=== PATIENT | female | born 1975 | race Caucasian/White ===

== ENCOUNTER → 2019-11-14 | Outpatient (CLI) | payer BC | END | disposition home or self-care (01) | LOC: PREOP 05:42 | PROVIDERS: ATTEND Surgery | DX: Z01.818 Encounter for other preprocedural examination (principal) ==

== ENCOUNTER → 2020-05-10 | Outpatient (CLI) | payer BC ==
[~2020-05-10] MED LIST: LABE100T6 PO; LISI10TA2 PO; METF-397 PO
--- NOTE | 2020-05-11 09:06 | Diagnostic Imaging Report ---
INDICATION: Routine screening. No prior mammograms are available for comparison. This is a baseline study. 2-D and 3-D bilateral screening mammography was performed with CAD. Both breasts are heterogeneously dense, limiting the sensitivity of mammography. No mass or malignant appearing microcalcifications are identified. The axillae are unremarkable. IMPRESSION: BI-RADS Category 1 No mammographic features suspicious for malignancy are identified. ACR BI-RADS Category 1: Negative. Result letter will be mailed to the patient. Note: At least 10% of breast cancer is not imaged by mammography. Dictated by: Dictated on workstation # [id number]
== END ==
LOC: RAD 15:02
PROVIDERS: ATTEND Obstetrics & Gynecology
DX: Z12.31 Encounter for screening mammogram for malignant neoplasm of breast (principal)
CPT/HCPCS: 77063; 77067

== ENCOUNTER → 2021-07-05 | Outpatient (CLI) | payer BC ==
[~2021-07-05] MED LIST changes: -LISI10TA2 PO; +LISI10TA25 PO
[2021-07-05 15:43] LABS: CHOLESTEROL 137 MG/DL (< 200); HDL CHOLESTEROL 53 MG/DL (40-60); TRIGLYCERIDES 229 MG/DL (<150); VLDL CHOLESTEROL 46 MG/DL (5-40)
== END ==
LOC: LAB FS 07:35
PROVIDERS: ATTEND Obstetrics & Gynecology
DX: E78.00 Pure hypercholesterolemia, unspecified (principal)
CPT/HCPCS: 36415; 80061

== ENCOUNTER 2021-08-08 12:03 | Emergency (ER) | payer BC ==
[~2021-08-08] VITALS: Ht 162 cm; Wt 135.0 kg
[2021-08-08 12:23] LABS: BILIRUBIN,URINE NEGATIVE (NEGATIVE); CLARITY,URINE TURBID; COLOR,URINE RED; GLUCOSE, URINE (UA) NEGATIVE (NEGATIVE); KETONES,URINE 1+ (NEGATIVE); LEUKOCYTE ESTERASE ,URINE 2+ (NEGATIVE); PROTEIN,URINE 3+ (NEGATIVE)
[2021-08-08 12:41] LABS: WHITE BLOOD COUNT 9.6 10^3/uL (4.3-11.0)
[2021-08-08 12:42] LABS: BASOPHILS % (AUTO) 0 % (0-10); EOSINOPHILS # (AUTO) 0.1 10^3/uL (0.0-0.3); EOSINOPHILS % (AUTO) 2 % (0-10); HEMATOCRIT 33 % (35-52); HEMOGLOBIN 11.1 g/dL (11.5-16.0); LYMPHOCYTES % (AUTO) 21 % (12-44); MEAN CORPUSCULAR HEMOGLOBIN 29 pg (25-34); MEAN CORPUSCULAR HGB CONC 33 g/dL (32-36); MEAN CORPUSCULAR VOLUME 87 fL (80-99); MEAN PLATELET VOLUME 9.7 fL (9.0-12.2); MONOCYTES # (AUTO) 0.9 X 10^3 (0.0-1.0); MONOCYTES % (AUTO) 9 % (0-12); NEUTROPHILS # (AUTO) 6.5 X 10^3 (1.8-7.8); NEUTROPHILS % (AUTO) 68 % (42-75); PLATELET COUNT 353 10^3/uL (130-400)
[2021-08-08 12:44] LABS: NITRITE,URINE NEGATIVE (NEGATIVE)
[2021-08-08 12:45] LABS: BACTERIA,URINE NEGATIVE /HPF; RBC,URINE TNTC /HPF; SQUAMOUS EPITHELIAL CELL,UR RARE /HPF
[2021-08-08 13:09] LABS: POTASSIUM 4.1 MMOL/L (3.6-5.0)
[2021-08-08 13:10] LABS: BILIRUBIN,TOTAL 0.2 MG/DL (0.1-1.0); CALCIUM 8.7 MG/DL (8.5-10.1); CREATININE SERUM 0.64 MG/DL (0.60-1.30); TOTAL PROTEIN 6.5 GM/DL (6.4-8.2)
[2021-08-08 13:11] LABS: ALBUMIN 3.7 GM/DL (3.2-4.5)
--- NOTE | 2021-08-08 13:25 | Diagnostic Imaging Report ---
INDICATION: Abnormal uterine bleeding TECHNIQUE: Multiple real time jin scale sonographic images were obtained of the pelvis transabdominally and endovaginally. CORRELATION STUDY: None FINDINGS: UTERUS: 9.6 x 5.4 x 4.9 cm. ENDOMETRIUM: 12 mm. There is a heterogeneous predominantly solid appearing mass in the mid left aspect of the uterus which invades into the endometrium. This measures approximately 5.7 x 5.1 x 4.2 cm. Presence of vascular blood flow. RIGHT OVARY: Not visualized, perhaps obscured by overlying bowel gas and/or positional. LEFT OVARY: Left ovary not well visualized, however there does appear to be a predominantly simple appearing cyst in the left adnexa which measures 4.3 x 3.2 x 2.9 cm. No significant free pelvic fluid. IMPRESSION: 1. Complex vascularized uterine mass measuring nearly 6 cm in size. This appears to invade into the endometrial canal. May very well reflect a fibroid uterus. Other masses including neoplasm are not excluded. 2. Endometrial thickness upper limits of normal. 3. Ovaries are not well visualized. Probable left ovarian or paraovarian cyst. 4. Given the overall findings, if further assessment desired, MRI of the pelvis would be recommended and likely of diagnostic utility. Dictated by: Dictated on workstation # [id number]
--- NOTE | 2021-08-08 13:25 | ED GU-Female ---
General Chief Complaint: - Reproductive Stated Complaint: VAGINAL BLEEDING Nursing Triage Note: PT REPORTS SHE HAS HAD A HEAVY PERIOD SINCE THURSDAY WITH LARGE CLOTS TODAY. Source: patient Exam Limitations: no limitations History of Present Illness Date Seen by Provider: Aug 08, 2021 Time Seen by Provider: 12:20 Initial Comments Patient is a 44-year-old female with a history of PCOS who presents with heavy vaginal bleeding with large clots starting 3 days ago. Patient states she is going through a tampon every every hour with 2-3 inch size clots. She reports g eneralized fatigue and weakness. She denies dizziness lightheadedness chest pain palpitation shortness of breath. Reports some mild pelvic cramping. No chest pain palpitations shortness of breath. No other acute symptoms or complaints. Last menstrual period 1 month ago. Patient reports regular monthly cycles with average 5 to 7-day menstrual bleed y Timing/Duration: week, intermittent Location: other Radiation: other Activities at Onset: other Modifying Factors: Improves With Other Associated Symptoms: other Allergies and Home Medications Allergies Coded Allergies: No Known Drug Allergies (Unverified , 11/21/19) Patient Home Medication List Home Medication List Reviewed: Yes Labetalol HCl (Labetalol HCl) Unknown Strength Tablet, Unknown Dose PO, (Reported) Entered as Reported by: ALBERTO GOMEZ on 11/21/19 1050 Lisinopril (Lisinopril) Unknown Strength Tablet, Unknown Dose PO DAILY, (Reported) Entered as Reported by: ALBERTO GOMEZ on 11/21/19 1050 Metformin HCl (Metformin HCl) 500 Mg Tablet, 500 MG PO BID, (Reported) Entered as Reported by: ALBERTO GOMEZ on 11/21/19 1050 Review of Systems Review of Systems Constitutional: see HPI EENTM: see HPI Respiratory: see HPI Cardiovascular: see HPI Gastrointestinal: see HPI Genitourinary: see HPI Musculoskeletal: see HPI Skin: see HPI Psychiatric/Neurological: See HPI Endocrine: See HPI Hematologic/Lymphatic: See HPI All Other Systemes Reviewed Negative Unless Noted: Yes Past Knexhdg-Mgldtr-Gynavf Hx Patient Social History Tobacco Use?: No Use of E-Cig and/or Vaping dev: No Substance use?: No Alcohol Use?: Yes Pt feels they are or have been: No Immunizations Up To Date PED Vaccines UTD: No Seasonal Allergies Seasonal Allergies: No Past Medical History Surgeries: No Respiratory: No Cardiac: Yes Hypertension Neurological: No Last Menstrual Period: Aug 08, 2021 Genitourinary: No Gastrointestinal: No Musculoskeletal: No Endocrine: No HEENT: No Cancer: No Psychosocial: No Integumentary: No Blood Disorders: No Physical Exam Vital Signs Vital Signs - First Documented 08/08/21 12:07 Temp 36.0 Pulse 116 Resp 18 B/P (MAP) 186/112 (136) Pulse Ox 99 O2 Delivery Room Air Capillary Refill : Less Than 3 Seconds Height, Weight, BMI Height: '" Weight: lbs. oz. kg; 51.00 BMI Method: General Appearance: WD/WN, no apparent distress HEENT: PERRL/EOMI Neck: full range of motion, supple Cardiovascular: normal peripheral pulses Respiratory: lungs clear, normal breath sounds Gastrointestinal: non tender, soft Extremities: non-tender Neurologic/Psychiatric: alert, oriented x 3 Skin: normal color Focused Exam Sepsis Stage: Ruled Out Progress/Results/Core Measures Suspected Sepsis SIRS Temperature: Pulse: 116 Respiratory Rate: 18 Laboratory Tests 08/08/21 12:20: White Blood Count 9.6 Blood Pressure 186 /112 Mean: 136 Laboratory Tests 08/08/21 12:20: Creatinine 0.64, Platelet Count 353, Total Bilirubin 0.2 Results/Orders Lab Results Laboratory Tests Test 08/08/21 12:09 08/08/21 12:20 Range/Units Urine Color RED H Urine Clarity TURBID Urine pH 5.0 5-9 Urine Specific [place] 1.025 H 1.016-1.022 Urine Protein 3+ H NEGATIVE Urine Glucose (UA) NEGATIVE NEGATIVE Urine Ketones 1+ H NEGATIVE Urine Nitrite NEGATIVE NEGATIVE Urine Bilirubin NEGATIVE NEGATIVE Urine Urobilinogen 2.0 < = 1.0 MG/DL Urine Leukocyte Esterase 2+ H NEGATIVE Urine RBC (Auto) 3+ H NEGATIVE Urine RBC TNTC H /HPF Urine WBC 2-5 /HPF Urine Squamous Epithelial Cells RARE /HPF Urine Crystals NONE /LPF Urine Bacteria NEGATIVE /HPF Urine Casts NONE /LPF Urine Mucus LARGE H /LPF Urine Culture Indicated YES White Blood Count 9.6 4.3-11.0 10^3/uL Red Blood Count 3.86 3.80-5.11 10^6/uL Hemoglobin 11.1 L 11.5-16.0 g/dL Hematocrit 33 L 35-52 % Mean Corpuscular Volume 87 80-99 fL Mean Corpuscular Hemoglobin 29 25-34 pg Mean Corpuscular Hemoglobin Concent 33 32-36 g/dL Red Cell Distribution Width 14.6 H 10.0-14.5 % Platelet Count 353 130-400 10^3/uL Mean Platelet Volume 9.7 9.0-12.2 fL Immature Granulocyte % (Auto) 0 % Neutrophils (%) (Auto) 68 42-75 % Lymphocytes (%) (Auto) 21 12-44 % Monocytes (%) (Auto) 9 0-12 % Eosinophils (%) (Auto) 2 0-10 % Basophils (%) (Auto) 0 0-10 % Neutrophils # (Auto) 6.5 1.8-7.8 X 10^3 Lymphocytes # (Auto) 2.0 1.0-4.0 X 10^3 Monocytes # (Auto) 0.9 0.0-1.0 X 10^3 Eosinophils # (Auto) 0.1 0.0-0.3 10^3/uL Basophils # (Auto) 0.0 0.0-0.1 10^3/uL Immature Granulocyte # (Auto) 0.0 0.0-0.1 10^3/uL Sodium Level 137 135-145 MMOL/L Potassium Level 4.1 3.6-5.0 MMOL/L Chloride Level 105 98-107 MMOL/L Carbon Dioxide Level 21 21-32 MMOL/L Anion Gap 11 5-14 MMOL/L Blood Urea Nitrogen 12 7-18 MG/DL Creatinine 0.64 0.60-1.30 MG/DL Estimat Glomerular Filtration Rate 101 BUN/Creatinine Ratio 19 Glucose Level 111 H 70-105 MG/DL Calcium Level 8.7 8.5-10.1 MG/DL Corrected Calcium 8.9 8.5-10.1 MG/DL Total Bilirubin 0.2 0.1-1.0 MG/DL Aspartate Amino Transf (AST/SGOT) 19 5-34 U/L Alanine Aminotransferase (ALT/SGPT) 12 0-55 U/L Alkaline Phosphatase 85 40-136 U/L Total Protein 6.5 6.4-8.2 GM/DL Albumin 3.7 3.2-4.5 GM/DL My Orders Orders - ODALYS POLLOCK DO Cbc With Automated Diff (08/08/21 12:16) Comprehensive Metabolic Panel (08/08/21 12:16) Urinalysis (08/08/21 12:16) Urine Bedside (08/08/21 12:16) Us Pelvic (Non Ob) [id number] (08/08/21 12:36) Urine Culture (08/08/21 12:09) Vital Signs/I&O 08/08/21 12:07 Temp 36.0 Pulse 116 Resp 18 B/P (MAP) 186/112 (136) Pulse Ox 99 O2 Delivery Room Air Capillary Refill : Less Than 3 Seconds Blood Pressure Mean: 136 Departure Communication (Admissions) Pelvic ultrasound: Large complex vascular endometrial mass Patient with uterine bleeding with abnormal ultrasound and stable vital signs/H&H Case reviewed with on-call primary school teacher in detail. Recommendations are for outpatient endometrial biopsy with possible D&C next week. Patient instructed to contact primary school teacher office. Return precautions reviewed. Patient verbalizes understanding and agreement discharge instructions prior to discharge. Impression Primary Impression: Dysfunctional uterine bleeding Disposition: HOME, SELF-CARE Condition: Against Medical Advice Departure-Patient Inst. Decision time for Depature: 13:43 Referrals: AKILA FU DO Patient Instructions: Bleeding Between Periods Add. Discharge Instructions: You were evaluated in the emergency department for abnormal uterine bleeding. An ultrasound was performed which shows an endometrial mass. Please contact Dr. Ortiz on-call for [employer] and schedule an office follow-up next week for possible endometrial biopsy versus D&C. In the meantime if you develop new or worsening symptoms, please return to the emergency department. All discharge instructions reviewed with patient and/or family. Voiced understanding. ODALYS POLLOCK DO Aug 08, 2021 13:24
[2021-08-08] MEDS ORDERED: oxyCODONE/APAP 5/325MG (PERCOCET 5) TABLET PO ONE (14:00)
[2021-08-08 14:13] VITALS: BP 147/86
[2021-08-08] MEDS ORDERED: ACHD5005 PO (14:26)
[2021-08-08] MEDS ORDERED: HYDROcodone/APAP 5 MG/325 MG (LORTAB) TAB PO PRN (14:30)
== END 2021-08-08 14:28 | disposition home or self-care (01) ==
LOC: EDUNIT# 12:03 → ER FS 12:04
DX: N93.8 Other specified abnormal uterine and vaginal bleeding (principal); I10 Essential (primary) hypertension; Z79.899 Other long term (current) drug therapy
CPT/HCPCS: 36415; 76856; 80053; 81000; 84703; 85025; 87077; 87088

== ENCOUNTER 2021-08-14 05:50 | Outpatient (CLI) | payer BC ==
[~2021-08-14] VITALS: Ht 162.6 cm; Wt 131.8 kg
[~2021-08-14 05:50] MED LIST changes: +ACHD5005 PO
[2021-08-14] MEDS ORDERED: ATOR20TA66 PO (10:36)
[2021-08-14] MEDS ORDERED: MEDR10TA9 PO (10:36)
== END 2021-08-14 11:14 | disposition home or self-care (01) ==
LOC: PREOP 05:50
PROVIDERS: ATTEND Obstetrics & Gynecology
DX: Z01.818 Encounter for other preprocedural examination (principal)

== ENCOUNTER 2021-08-19 08:43 | Day surgery (SDC) | payer BC ==
[2021-08-19] VITALS (12 sets, daily range): BP systolic 121–168; BP diastolic 65–100
[~2021-08-19] VITALS: Ht 162.6 cm; Wt 131.8 kg
[~2021-08-19 08:43] MED LIST changes: +ATOR20TA66 PO; +MEDR10TA9 PO
[2021-08-19] MEDS ORDERED: LACTATED RINGERS 1,000 ML IV PRN (09:00)
[2021-08-19 09:28] LABS: BASOPHILS % (AUTO) 0 % (0-10); EOSINOPHILS # (AUTO) 0.1 10^3/uL (0.0-0.3); EOSINOPHILS % (AUTO) 2 % (0-10); HEMATOCRIT 29 % (35-52); HEMOGLOBIN 9.7 g/dL (11.5-16.0); LYMPHOCYTES # (AUTO) 1.7 10^3/uL (1.0-4.0); LYMPHOCYTES % (AUTO) 25 % (12-44); MEAN CORPUSCULAR HEMOGLOBIN 28 pg (25-34); MEAN CORPUSCULAR HGB CONC 33 g/dL (32-36); MEAN CORPUSCULAR VOLUME 86 fL (80-99); MEAN PLATELET VOLUME 9.5 fL (9.0-12.2); MONOCYTES # (AUTO) 0.6 10^3/uL (0.0-1.0); MONOCYTES % (AUTO) 9 % (0-12); NEUTROPHILS # (AUTO) 4.4 10^3/uL (1.8-7.8); NEUTROPHILS % (AUTO) 64 % (42-75); PLATELET COUNT 408 10^3/uL (130-400); WHITE BLOOD COUNT 6.9 10^3/uL (4.3-11.0)
[2021-08-19] MEDS ORDERED: LIDOCAINE PF 2% 5 ML (XYLOCAINE) VIAL ONE (10:49)
[2021-08-19] MEDS ORDERED: fentaNYL INJ 100 MCG/2 ML AMP ONE ×2 (10:49→12:00)
[2021-08-19] MEDS ORDERED: proPOfol 200 MG/20 ML (DIPRIVAN) VIAL IV ONE (10:49)
[2021-08-19] MEDS ORDERED: ONDANSETRON 4 MG/2 ML (SDV) Z0FRAN ONE (10:49)
[2021-08-19] MEDS ORDERED: MIDAZOLAM 2 MG/2 ML (VERSED) VIAL ONE (10:49)
[2021-08-19] MEDS ORDERED: SEVOFLURANE (ULTANE) 15 ML INHAL SOLN ONE ×3 (10:49→12:01)
[2021-08-19] MEDS ORDERED: BUPIVACAINE 0.25% 30 ML (SENSORCAINE) VIAL ONE (10:58)
--- NOTE | 2021-08-19 12:10 | Progress Note-Pre Operative ---
Pre-Operative Progress Note H&P Reviewed The H&P was reviewed, patient examined and no changes noted. Date Seen by Provider: Aug 19, 2021 Time Seen by Provider: 12:00 Date H&P Reviewed: Aug 19, 2021 Time H&P Reviewed: 12:00 Pre-Operative Diagnosis: AUB, Intrauterine mass AKILA FU DO Aug 19, 2021 12:10
--- NOTE | 2021-08-19 12:13 | Discharge Inst-Women's Service ---
Discharge Inst-Women's Serv Depart Medication/Instructions New, Converted or Re-Newed RX: Other (take at home meds) Problems Reviewed?: Yes Consults/Follow Up Additional Follow Up: Yes Activity Activity: Activity as Tolerated Driving Instructions: No Driving for 1 Week NO SMOKING: NO SMOKING Nothing Inside Vagina: No Douching, No [place], No Tampons Diet Discharge Diet: No Restrictions Symptoms to Report to : Bleeding Excessive, Pain Increased, Fever Over 101 Degrees F, Vaginal Bleeding Increase, Questions/Concerns For Any Problems or Questions: Contact Your Physician AKILA FU DO Aug 19, 2021 12:13
[2021-08-19] MEDS ORDERED: ONDANSETRON 4 MG/2 ML (SDV) Z0FRAN IVP PRN ×2 (12:15→12:30)
[2021-08-19] MEDS ORDERED: KETOROLAC 30 MG/ML VIAL IVP ONE (12:15)
[2021-08-19] MEDS ORDERED: D5 LR IV SOLUTION 1,000 ML IV SCH (12:15)
[2021-08-19] MEDS ORDERED: KETOROLAC 30 MG/ML VIAL ONE (12:26)
[2021-08-19] MEDS ORDERED: morphine INJ 10 MG/ML 1ML (SYR OR VIAL) IVP ONE (12:30)
--- NOTE | 2021-08-19 19:28 | OPERATIVE REPORT ---
DATE OF SERVICE: PREOPERATIVE DIAGNOSES: 1. A 45-year-old female with abnormal uterine bleeding. 2. Intrauterine mass. POSTOPERATIVE DIAGNOSES: 1. A 45-year-old female with abnormal uterine bleeding. 2. Intrauterine mass. PROCEDURE: D and C with hysteroscopic partial resection of endometrial intrauterine mass. SURGEON: Akila Fu DO ANESTHESIA: LMA. ESTIMATED BLOOD LOSS: Minimal. URINE OUTPUT: 50 mL drained at the end of procedure. FLUIDS: 1200 mL lactated Ringer's solution. FINDINGS: A large lower uterine segment distorting mass that appears to be smooth and the surface consistent with a submucosal fibroid. Grossly normal appearing intrauterine cavity, otherwise normal normal-appearing tubal ostia. SPECIMEN SENT: Endometrial curettings. INDICATIONS FOR PROCEDURE: This 45-year-old female as a patient's followup from the [facility] for heavy bleeding episode. She was started on Provera initially and sent home. Due to her stability, she continued her Provera and her bleeding had stopped. She reports that her preoperative consultation that she has been bleeding for approximately the last 4 weeks, really picked up in the past week. I discussed with the patient need for endometrial sampling due to her age and her body habitus as well as suspicion of this mass, possibly being something neoplastic or malignant. Risk of D and C was discussed with the patient in detail including risk of bleeding, infection, damage to surrounding structures including the uterus itself. After all of her questions were answered, consent was obtained, the patient was taken to the operating room. OPERATIVE REPORT IN DETAIL: Once in the operating room and anesthesia was found to be adequate, she was placed in the dorsal lithotomy position, prepped and draped in normal sterile fashion. A timeout was performed. Weighted speculum was inserted into the patient's vagina. Right angle retractor was used to visualize the cervix, which was grasped at 12 o'clock position using a long Allis clamp. I then performed paracervical block at 3 and 9 o'clock positions on the cervix. Care was taken to aspirate for injecting 0.25% Marcaine with 5 mL are injected into each site. I then gently sound uterine cavity and was found to be approximately 8 to 9 cm. I then advanced a hysteroscope with normal saline with visual medium into the uterine cavity. Initially, the uterine cavity appears to be grossly normal until I reached the level of the lower uterine segment and entered into the cervix, at which point, there is a large space-occupying intrauterine mass coming off of the anterior left endometrial endocervical attachment point, at which point I attempt to begin to resect this; however, due to the fluid management system, unable to completely resect, I am able to collect a tissue sample from the intrauterine mass, which I suspect of the fibroid by its gross appearance. I then performed a gentle curettage of the remainder of the endometrial cavity. All of these are collected together and sent as endometrial curettings. I removed all the instruments from the patient's vagina at the end of the procedure and the bladder was emptied using straight catheterization. Lap and sponge counts were correct at the end of the procedure. Instrument counts correct as well. The patient tolerated the procedure well and sent to recovery in stable condition. Job ID: [id number] DocumentID: [id number] Dictated Date: 08/19/2021 12:50:40 Fast Food Supervisor Date: 08/19/2021 19:27:43 Dictated By: AKILA FU DO
== END 2021-08-19 14:15 | disposition home or self-care (01) ==
LOC: SDC 08:43
PROVIDERS: ATTEND Obstetrics & Gynecology
DX: N84.0 Polyp of corpus uteri (principal); I10 Essential (primary) hypertension; E66.01 Morbid (severe) obesity due to excess calories; Z68.42 Body mass index [BMI] 45.0-49.9, adult; Z79.891 Long term (current) use of opiate analgesic; Z90.49 Acquired absence of other specified parts of digestive tract; Z79.899 Other long term (current) drug therapy; Z90.89 Acquired absence of other organs
CPT/HCPCS: 36415; 84703; 85025; 86850; 86900; 86901; 87081

== ENCOUNTER 2021-09-02 06:55 | Outpatient (CLI) | payer BC ==
[~2021-09-02] VITALS: Ht 162.5 cm; Wt 131.8 kg
[2021-09-03] MEDS ORDERED: NORG1TAB75 PO (10:22)
== END 2021-09-04 10:48 | disposition home or self-care (01) ==
LOC: PREOP 06:55
PROVIDERS: ATTEND Obstetrics & Gynecology
DX: Z01.818 Encounter for other preprocedural examination (principal)

== ENCOUNTER 2021-09-09 07:47 | Day surgery (SDC) | payer BC ==
[~2021-09-09] VITALS: Ht 162.5 cm; Wt 131.8 kg
[2021-09-09] VITALS (11 sets, daily range): BP systolic 141–172; BP diastolic 79–886
[~2021-09-09 07:47] MED LIST changes: +NORG1TAB75 PO
[2021-09-09 08:26] LABS: BASOPHILS % (AUTO) 0 % (0-10); EOSINOPHILS # (AUTO) 0.1 10^3/uL (0.0-0.3); EOSINOPHILS % (AUTO) 2 % (0-10); HEMATOCRIT 31 % (35-52); HEMOGLOBIN 9.6 g/dL (11.5-16.0); LYMPHOCYTES # (AUTO) 1.3 10^3/uL (1.0-4.0); LYMPHOCYTES % (AUTO) 21 % (12-44); MEAN CORPUSCULAR HEMOGLOBIN 27 pg (25-34); MEAN CORPUSCULAR HGB CONC 32 g/dL (32-36); MEAN CORPUSCULAR VOLUME 85 fL (80-99); MEAN PLATELET VOLUME 9.5 fL (9.0-12.2); MONOCYTES # (AUTO) 0.5 10^3/uL (0.0-1.0); MONOCYTES % (AUTO) 8 % (0-12); NEUTROPHILS # (AUTO) 4.3 10^3/uL (1.8-7.8); NEUTROPHILS % (AUTO) 68 % (42-75); PLATELET COUNT 361 10^3/uL (130-400); WHITE BLOOD COUNT 6.3 10^3/uL (4.3-11.0)
[2021-09-09] MEDS ORDERED: ceFAZolin 2 GM IV Premixed 50 ML IV ONE (08:30)
[2021-09-09 08:35] LABS: ALBUMIN 3.8 GM/DL (3.2-4.5); POTASSIUM 3.9 MMOL/L (3.6-5.0)
[2021-09-09 08:37] LABS: CALCIUM 8.3 MG/DL (8.5-10.1)
[2021-09-09 08:38] LABS: TOTAL PROTEIN 6.7 GM/DL (6.4-8.2)
[2021-09-09 08:39] LABS: BILIRUBIN,TOTAL 0.5 MG/DL (0.1-1.0)
[2021-09-09 08:41] LABS: CREATININE SERUM 0.72 MG/DL (0.60-1.30)
[2021-09-09] MEDS ORDERED: SEVOFLURANE (ULTANE) 15 ML INHAL SOLN ONE ×3 (08:57→10:58)
[2021-09-09] MEDS ORDERED: LIDOCAINE PF 2% 5 ML (XYLOCAINE) VIAL ONE (08:57)
[2021-09-09] MEDS ORDERED: ONDANSETRON 4 MG/2 ML (SDV) Z0FRAN ONE (08:57)
[2021-09-09] MEDS ORDERED: proPOfol 200 MG/20 ML (DIPRIVAN) VIAL IV ONE ×2 (08:57→11:10)
[2021-09-09] MEDS ORDERED: fentaNYL INJ 100 MCG/2 ML AMP ONE ×2 (08:58→09:57)
[2021-09-09] MEDS ORDERED: MIDAZOLAM 2 MG/2 ML (VERSED) VIAL ONE (08:58)
[2021-09-09] MEDS ORDERED: ROCURONIUM 50 MG/5 ML (ZEMURON) VIAL IV ONE ×2 (08:58→10:23)
[2021-09-09] MEDS: LACTATED RINGERS 1,000 ML IV PRN ×3 (09:00→11:56)
[2021-09-09] MEDS ORDERED: BUPIVACAINE 0.25% 30 ML (SENSORCAINE) VIAL ONE (09:07)
--- NOTE | 2021-09-09 09:11 | Progress Note-Pre Operative ---
Pre-Operative Progress Note H&P Reviewed The H&P was reviewed, patient examined and no changes noted. Date Seen by Provider: Sep 09, 2021 Time Seen by Provider: 09:00 Date H&P Reviewed: Sep 09, 2021 Time H&P Reviewed: 09:00 Pre-Operative Diagnosis: AUB, Fibroid uterus, BMI 49 AKILA FU DO Sep 09, 2021 09:11
[2021-09-09] MEDS ORDERED: CHLORASEPTIC LOZENGE MM PRN (09:15)
[2021-09-09] MEDS ORDERED: DOCUSATE SODIUM 100 MG (COLACE) CAP PO PRN (09:15)
[2021-09-09] MEDS ORDERED: ONDANSETRON 4 MG/2 ML (SDV) Z0FRAN IV PRN (09:15)
[2021-09-09] MEDS ORDERED: IBUPROFEN 600 MG (MOTRIN) TAB PO PRN (09:15)
[2021-09-09] MEDS ORDERED: ANTACID SUSP 30 ML UDC (MYLANTA) PO PRN (09:15)
[2021-09-09] MEDS ORDERED: KETOROLAC 30 MG/ML VIAL IVP PRN (09:15)
[2021-09-09] MEDS ORDERED: LACTATED RINGERS 1,000 ML IV SCH (09:15)
[2021-09-09] MEDS ORDERED: ZOLPIDEM 5 MG (AMBIEN) TAB PO PRN (09:15)
[2021-09-09] MEDS ORDERED: HYDROcodone/APAP 7.5 MG/325 MG (LORTAB, LORCET PLUS) TABLET PO PRN (09:15)
[2021-09-09] MEDS ORDERED: NALOXONE 0.4 MG/ML 1 ML (NARCAN) VIAL IV PRN (09:15)
[2021-09-09] MEDS ORDERED: SIMETHICONE 80 MG (MYLICON) CHEW PO PRN (09:15)
--- NOTE | 2021-09-09 09:16 | Discharge Inst-Women's Service ---
Discharge Inst-Women's Serv Depart Medication/Instructions New, Converted or Re-Newed RX: Transmitted to Pharmacy Problems Reviewed?: Yes Consults/Follow Up Additional Follow Up: Yes Orders/Referrals Dr. Flores in 7-10 days and in 8 weeks Activity Activity: Activity as Tolerated Driving Instructions: No Driving for 1 Week NO SMOKING: NO SMOKING Nothing Inside Vagina: No Douching, No [place], No Tampons Diet Discharge Diet: No Restrictions Symptoms to Report to : Bleeding Excessive, Pain Increased, Fever Over 101 Degrees F, Vaginal Bleeding Increase, Questions/Concerns For Any Problems or Questions: Contact Your Physician Skin/Wound Care Infection Signs and Symptoms: Increased Redness, Foul Odor of Wound, Increased Drainage, Skin Itchy or Has a Rash, Increased Swelling, Temperature Above 101 F Operative Area Clean and Dry: Keep Incision Clean/Dry Stitches/Mary/Dermabond: Dermabond, Care of Stitches Bathing Instructions: AKILA Huber DO Sep 09, 2021 09:16
[2021-09-09] MEDS ORDERED: DOCU100C37 PO (09:17)
[2021-09-09] MEDS ORDERED: IBUP-844 PO (09:17)
[2021-09-09] MEDS ORDERED: HYDR-34 PO (09:17)
[2021-09-09] MEDS ORDERED: metroNIDAZOLE 500MG/100ML IVPB 100 ML ONE (09:40)
[2021-09-09] MEDS ORDERED: fentaNYL INJ 100 MCG/2 ML AMP IVP ONE (11:45)
[2021-09-09] MEDS ORDERED: ONDANSETRON 4 MG/2 ML (SDV) Z0FRAN IVP PRN (11:45)
[2021-09-09] MEDS ORDERED: morphine INJ 10 MG/ML 1ML (SYR OR VIAL) IVP ONE (11:45)
[2021-09-09] MEDS ORDERED: MEPERIDINE (DEMEROL) INJ 50 MG/ML IVP ONE (11:45)
[2021-09-09] MEDS ORDERED: morphine INJ 10 MG/ML 1ML (SYR OR VIAL) ONE (11:52)
[2021-09-09] MEDS ORDERED: KETOROLAC 30 MG/ML VIAL ONE (12:57)
[2021-09-09] MEDS ORDERED: LABETALOL 200 MG (NORMODYNE) TAB PO ONE ×2 (14:15→14:22)
[2021-09-09] MEDS ORDERED: LABETALOL HCL 20 MG/4 ML VIAL IV ONE (14:15)
[2021-09-09] MEDS ORDERED: LABETALOL HCL 20 MG/4 ML VIAL ONE (14:20)
--- NOTE | 2021-09-10 00:35 | OPERATIVE REPORT ---
DATE OF SERVICE: PREOPERATIVE DIAGNOSES: 1. A 45-year-old female with fibroid uterus. 2. Menorrhagia. 3. Dysmenorrhea. POSTOPERATIVE DIAGNOSES: 1. A 45-year-old female with fibroid uterus. 2. Menorrhagia. 3. Dysmenorrhea. PROCEDURE: Robotic-assisted total laparoscopic hysterectomy with bilateral salpingectomy, weight > 250 gms. Extensive lysis of adhesions. SURGEON: Santosh Flores DO SALOONKEEPER: Deepali Vang DNP, was necessary for manipulation and retraction throughout the procedure. ANESTHESIA: General endotracheal. ESTIMATED BLOOD LOSS: 50 mL. URINE OUTPUT: 50 mL clear at the end of the procedure. FLUIDS: 1800 mL lactated Ringer's solution. FINDINGS: A bulky and hyperemic appearing uterus. Grossly normal appearing bilateral fallopian tubes and ovaries, curtain adhesions of the omentum to the anterior abdominal wall from prior cesareans. SPECIMEN SENT: Uterus, bilateral fallopian tubes. INDICATIONS FOR PROCEDURE: This 45-year-old female is a patient who had sought care in my office for heavy abnormal bleeding that she has had for years. She has had multiple medical comorbidities including obesity, which prompted us to first do a D and C for endometrial sampling, which was benign, but showed evidence of fibroids. I discussed with the patient more conservative measures; however, due to her multiple medical comorbidities, some of those measures were inappropriate and contraindicated. I then discussed also with the patient definitive therapy in the form of hysterectomy. Risks of the procedure were discussed with the patient in detail including risk of bleeding, infection, damage to surrounding structures including, but not limited to bowel, bladder, ureter, kidneys, possible need for reoperation, postoperative complications that may occur, risk from anesthesia, recovery timeframe and even . After everything was discussed with the patient in detail, consent was obtained in the preoperative area, the patient was taken to the operating room. OPERATIVE REPORT IN DETAIL: Once in the operating room, general anesthesia was found to be adequate, placed in dorsal lithotomy position, prepped and draped in normal sterile fashion where a timeout was performed. Calloway catheter was placed using sterile technique. A weighted speculum inserted to the patient's vagina. Right angle retractor was used to visualize the cervix, which was grasped at 12 o'clock position using a long Allis clamp. I then a 0 Vicryl suture was then placed anterior lip of the cervix and the suture was then used as my retraction. I then gently sound the uterine cavity, depth was found to be 8 cm. I selected an 8 cm Fabienne uterine manipulator tip and a 3.5 cm colpotomy ring. The manipulator tip was advanced into the uterus with the balloon was deployed and the colpotomy ring was advanced around the vaginal fornix after which all the other instruments were removed from the patient's vagina, performed change of gloves, turned my attention to the abdomen, where subcostally at the midclavicular line, I introduced the Veress needle through the skin until intraperitoneal placement was confirmed using a saline drop test. An opening pressure of 6 mmHg was noted, proceeded to maximum pressure of insufflation using CO2 gas of 15 mmHg, at which point I infiltrated the infraumbilical area using 0.25% Marcaine to make an 8 mm incision with a knife and directed a blunt laparoscopic da Mary camera trocar through this incision until intraperitoneal placement was again confirmed using the da Mary laparoscope. There was no evidence of damage upon my entry site; however, there are curtain adhesions of the lower abdomen. The upper abdomen appears grossly normal and clean as if no prior operations. The Veress is identified and removed. I then placed two lateral trocars using both 8 mm trocars, they are approximately 10 cm lateral to my infraumbilical trocar. Both these were placed under direct visualization of laparoscope, which requires some navigating around these curtain adhesions. Once both of these trocars were in place, I bring in the da Mary robot and docked in appropriate fashion. After the patient placed in steep Trendelenburg, I placed the SynchroSeal in the left hand and monopolar mayi in the right hand. I began by taking down the anterior abdominal wall adhesions. This was both done with sharp dissection, blunt dissection and some cautery to achieve hemostasis as adhesions were taken down. Once they were all taken down, I am able to visualize all of the pelvic anatomy as defined in my findings above. I performed the following dissection bilaterally starting at the uteroovarian ligament, which I sealed and transected using the SynchroSeal device. I then created a window in the mesosalpinx and dissect down this laterally using the SynchroSeal device, amputated fallopian tube from its surrounding blood supply. I then grasped the round ligament, which I sealed and transected using the SynchroSeal device. I then grasped the entire broad ligament, which I sealed and transected using the SynchroSeal device down to the level of the lower uterine segment, at which point I the anterior and posterior leaves of the broad ligament. Anterior leaflet was taken around the anterior vaginal fornix. Posterior leaflet was taken around to the posterior vaginal fornix. This allows me to skeletonize the uterine vessels laterally, which I sealed and transected using the SynchroSeal device. I then created a colpotomy at 12 o'clock position using monopolar mayi and took this circumferentially around the vaginal fornix amputating the cervix away from the vagina. The entire specimen was then removed through the vagina. I then proceeded with closing the lateral vaginal apices of the vaginal cuff using 2-0 Vicryl suture in a [id number] fashion colposuspending into the uterosacral ligaments. I closed the remainder of the vaginal cuff using 2-0 V-Loc in a running fashion, after which there was no active bleeding noted from any of my dissection planes. I then placed Surgiflo hemostatic agent over all my planes of dissection after I undocked the da Mary robot and proceeded with remainder of the case laparoscopically. I also copiously irrigated the pelvis using normal saline. Once the Surgicel was in place, I had the patient taken out of steep Trendelenburg where I removed the lateral trocars under direct visualization of the laparoscope and infraumbilical trocars left in place to release insufflation and introduce 10 mL of 0.25% Marcaine into peritoneal cavity for postoperative pain management. I then removed this trocar as well. The skin reapproximated using 4-0 Monocryl and interrupted subcuticular stitches. Dermabond was applied to the incisions and Band-Aids were placed over the incisions as well. Calloway catheter was left in place. The patient tolerated the procedure well and sent to recovery area in stable condition. Lap and sponge counts were correct at the end of the procedure. Instrument counts correct as well. Two grams of Ancef, 500 mg of Flagyl were given preoperatively for infection prophylaxis. Job ID: [id number] DocumentID: [id number] Dictated Date: 09/09/2021 11:45:26 Citrus Fruit Colorer Date: 09/09/2021 22:35:25 Dictated By: DO MOMO COLEY
--- NOTE | 2021-09-10 09:48 | Anesthesia-General Post-Op ---
General Patient Condition Mental Status/LOC: Same as Preop Cardiovascular: Satisfactory Nausea/Vomiting: Absent Respiratory: Satisfactory Pain: Controlled Complications: Absent Post Op Complications Complications None Follow Up Care/Instructions Patient Instructions None needed. Anesthesia/Patient Condition Patient Condition Patient is already discharged to home but she was doing well, no complaints, stable vital signs, no apparent adverse anesthesia problems prior to her discharge per nursing staff. MARRY ZIEGLER DO Sep 10, 2021 09:48
== END 2021-09-09 18:00 | disposition home or self-care (01) ==
LOC: SDC 07:47 → WS 12:04 → SDC 18:00
PROVIDERS: ATTEND Obstetrics & Gynecology
DX: D25.0 Submucous leiomyoma of uterus (principal); E66.9 Obesity, unspecified; G47.33 Obstructive sleep apnea (adult) (pediatric); I10 Essential (primary) hypertension; G43.909 Migraine, unspecified, not intractable, without status migrainosus; N80.0 Endometriosis of uterus; N73.6 Female pelvic peritoneal adhesions (postinfective); Z98.890 Other specified postprocedural states; Z79.899 Other long term (current) drug therapy; Z79.891 Long term (current) use of opiate analgesic; Z68.43 Body mass index [BMI] 50.0-59.9, adult
CPT/HCPCS: 36415; 80053; 84703; 85025; 86850; 86900; 86901; 87081; 94664